=== PATIENT | female | born 1990 | race Hispanic/Latino ===

== ENCOUNTER 2016-11-22 18:40 | Emergency (ER) | payer MEDICAID, OTHER ==
[2016-11-22 18:40] VITALS: BMI 31.7
[2016-11-22 18:59] VITALS: BP 118/61; PULSE 71; RESP 16; TEMP 97.7; O2SAT 98
[2016-11-22] MEDS ORDERED: Sodium Chloride 0.9% 1,000 ML IV STA (19:43)
[2016-11-22 20:32] LABS: ALB/GLOB RATIO 1.3 (1.0-2.1); ALKALINE PHOSPHATASE 75 U/L (38-126); ALT/SGPT 33 U/L (9-52); AST/SGOT 20 U/L (14-36); BILIRUBIN,TOTAL 0.9 mg/dl (0.2-1.3); BLOOD UREA NITROGEN 9 mg/dl (7-17); CALCIUM 9.5 mg/dL (8.4-10.2); CARBON DIOXIDE 24 mmol/L (22-30); CHLORIDE 106 mmol/L (98-107); GFR AFRICAN-AMERICAN > 60; GLUCOSE,RANDOM 86 mg/dL (65-105); LIPASE 76 U/L (23-300); POTASSIUM 4.1 MMOL/L (3.6-5.0); SODIUM 140 mmol/l (132-148); TOTAL PROTEIN 7.8 G/DL (6.3-8.2)
--- NOTE | 2016-11-22 20:52 | ED PDOC ---
HPI: Abdomen Time Seen by Provider: 11/22/16 19:16 Chief Complaint (Nursing): Abdominal Pain Chief Complaint (Provider): Abdominal pain History Per: Patient History/Exam Limitations: no limitations Onset/Duration Of Symptoms: Days (x1 week) Associated Symptoms: Vomiting (bilious, 4 episodes of non bloody), Diarrhea, Loss Of Appetite Additional Complaint(s): Janett Bartholomew is a 26 year old female, with no past medical history , who presents to the emergency department complaining of abdominal pain associated with vomit, poor appetite and diarrhea onset for 1 week. Patient reports 4 episodes of bilious and non bloody vomit. Patient further reports that 2 weeks ago she was scheduled a termination of performed at [facility]. Patient denies having vaginal discharge and completed 1 week of antibiotics as prescribed. PMD: None provided. Past Medical History Reviewed: Historical Data, Nursing Documentation, Vital Signs Vital Signs: Last Vital Signs Temp 97.7 F 11/22/16 18:56 Pulse 71 11/22/16 18:56 Resp 16 11/22/16 18:56 BP 118/61 11/22/16 18:56 Pulse Ox 98 11/22/16 23:32 - Medical History PMH: Anxiety, Hypothyroidism Denies: Chronic Kidney Disease Comment Only: Hyperthyroidism (has appointment for 04/12/14) - Surgical History Surgical History: Tonsillectomy, (x2) - Family History Family History: States: Unknown Family Hx - Social History Current smoker - smoking cessation education provided: Yes (1 pack a day) Alcohol: None Drugs: Denies - Home Medications Home Medications: Ambulatory Orders Medication Instructions Recorded Cefepime 1gm in NS 100ml [Maxipime 1 gm IVPB Q12 #0 bag 11/10/14 1gm] Ciprofloxacin/Dexamethasone 5 drop BID #0 bottle 11/10/14 [Ciprodex Otic] Docusate [Colace] 100 mg PO BID #0 cap 11/10/14 Oxycodone HCl/Acetaminophen 1 tab PO Q4 PRN #20 tab 11/10/14 [Percocet 325 mg-5 mg] Pantoprazole [Protonix] 40 mg PO DAILY #15 ect 11/10/14 predniSONE [predniSONE Tab] 60 mg PO DAILY #7 tab 11/10/14 Ciprofloxacin HCl [Cipro] 500 mg PO BID #19 tab 05/25/15 Ondansetron [Zofran] 4 mg PO Q8H PRN #10 tab 05/25/15 metroNIDAZOLE [Flagyl] 500 mg PO TID #29 tab 05/25/15 Cyclobenzaprine [Cyclobenzaprine 10 mg PO TID PRN #15 tab 12/18/15 HCl] Naproxen [Naprosyn] 500 mg PO BID #20 tab 12/18/15 Dicyclomine [Bentyl] 20 mg PO Q12 PRN #20 tab 11/22/16 Ondansetron ODT [Zofran ODT] 4 mg PO Q6 PRN #16 odt 11/22/16 - Allergies Allergies/Adverse Reactions: Allergies Allergy/AdvReac Type Severity Reaction Status Date / Time No Known Allergies Allergy Verified 05/25/15 15:27 Review of Systems Constitutional: Positive for: Weakness, Other (poor appetite) Gastrointestinal: Positive for: Vomiting (bilious, 4 episodes of non bloody), Abdominal Pain, Diarrhea Genitourinary Female: Negative for: Vaginal Discharge Physical Exam - Reviewed Nursing Documentation Reviewed: Yes Vital Signs Reviewed: Yes - Physical Exam Appears: Positive for: Non-toxic Head Exam: Positive for: ATRAUMATIC, NORMAL INSPECTION, NORMOCEPHALIC Skin: Positive for: Normal Color, Warm, Dry Eye Exam: Positive for: EOMI, Normal appearance, PERRL ENT: Positive for: Normal ENT Inspection Neck: Positive for: Normal, Painless ROM Cardiovascular/Chest: Positive for: Regular Rate, Rhythm. Negative for: Murmur Respiratory: Positive for: Normal Breath Sounds. Negative for: Respiratory Distress Gastrointestinal/Abdominal: Positive for: Tenderness (mild suprapubic ) Back: Positive for: Normal Inspection Extremity: Positive for: Normal ROM. Negative for: Pedal Edema, Deformity Neurologic/Psych: Positive for: Alert, Oriented. Negative for: Motor/Sensory Deficits - Laboratory Results Result Diagrams: 11/22/16 21:00 11/22/16 20:20 - ECG O2 Sat by Pulse Oximetry: 98 (RA) Pulse Ox Interpretation: Normal Medical Decision Making Medical Decision Making: Initial Impression: 26 y/o female w/ vomit and diarrhea in the setting of recent Initial Plan: --Urine dipstick --Urine --CBC w/ differential --Bentyl 20 mg PO --NS IV 1,000ml @ 1,00 mls/hr --Zofran Inj 4mg IV --Pelvic/Transvag US [US] --reevaluation 22:45 Transvaginal ultrasound reviewed. Findings noted as follows: Uterus/cervix: The endometrial stripe is prominent, measuring 10 mm in thickness. This thickening is avascular, which goes against the diagnosis of retained products of conception. No myometrial mass. Right ovary: Unremarkable in echogenicity and size measuring 2.3 x 1.1 x 1.9 cm. No mass. Normal blood flow. Left ovary: Unremarkable in echogenicity and size measuring 1.9 x 1.8 x 1.7 cm. No mass. Normal blood flow. Free fluid: No free fluid. IMPRESSION: Avascular endometrial thickening, consistent with patient's history. No sonographic evidence to suggest the presence of retained products of conception. Otherwise, unremarkable sonographic evaluation of the pelvis, as detailed above. 23:00 Labs were reviewed with no significant findings noted. Upon provider reevaluation patient reports improvement of symptoms, is medically stable, and requires no further treatment in the ED at this time. Patient will be discharged with Rx for Bentyl and Zofran. Counseling was provided and all questions were answered regarding diagnosis. There is agreement to discharge plan. Return if symptoms persist or worsen. Clinical Impression: Gastroenteritis Scribe Attestation: Documented by Ruslan Mccartney and Anel Anderson, acting as scribes for Alejandro Ohara MD. Provider Scribe Attestation: All medical record entries made by the Scribe were at my direction and personally dictated by me. I have reviewed the chart and agree that the record accurately reflects my personal performance of the history, physical exam, medical decision making, and the department course for this patient. I have also personally directed, reviewed, and agree with the discharge instructions and disposition. Disposition - Clinical Impression Clinical Impression: Gastroenteritis - Patient ED Disposition Is Patient to be Admitted: No Counseled Patient/Family Regarding: Studies Performed, Diagnosis, Rx Given - Disposition Disposition: Routine/Home Disposition Time: 23:00 Condition: IMPROVED Prescriptions: Dicyclomine [Bentyl] 20 mg PO Q12 PRN #20 tab PRN Reason: abdominal pain Ondansetron ODT [Zofran ODT] 4 mg PO Q6 PRN #16 odt PRN Reason: Nausea/Vomiting Instructions: Gastroenteritis (ED) Forms: [employer] (Croatian)
[2016-11-22 21:10] LABS: BASO % 0.3 % (0.0-2.0); EOS % 0.3 % (0.0-4.0); HEMATOCRIT 41.7 % (34.0-47.0); LYMPH # 1.7 K/uL (1.0-4.3); LYMPH % 17.1 % (20.0-40.0); MEAN CELL VOLUME 97.2 fl (81.0-99.0); MEAN CORPUSCULAR HEMOGLOBIN 32.2 pg (27.0-31.0); MEAN CORPUSCULAR HGB CONC 33.1 g/dL (33.0-37.0); MEAN PLATELET VOLUME 7.6 fl (7.2-11.7); MONO # 0.5 K/uL (0.0-0.8); MONO % 5.5 % (0.0-10.0); NEUT # 7.5 K/uL (1.8-7.0); NEUT % 76.8 % (50.0-75.0); RED CELL DISTRIBUTION WIDTH 13.6 % (11.5-14.5); WHITE BLOOD COUNT 9.7 K/uL (4.8-10.8)
--- NOTE | 2016-11-22 22:45 | US ---
EXAM: US Pelvis, Transvaginal CLINICAL HISTORY: 26 years old, female; Pain; Pelvic pain; Additional info: Possible rpoc TECHNIQUE: Real-time transvaginal pelvic ultrasound (complete) with image documentation. Transvaginal imaging was used for better evaluation of the endometrium and adnexa. COMPARISON: CT - ABD PELVIS PO IV CONTRAST 05/25/2015 7:44:56 PM FINDINGS: Uterus/cervix: The endometrial stripe is prominent, measuring 10 mm in thickness. This thickening is avascular, which goes against the diagnosis of retained products of conception. No myometrial mass. Right ovary: Unremarkable in echogenicity and size measuring 2.3 x 1.1 x 1.9 cm. No mass. Normal blood flow. Left ovary: Unremarkable in echogenicity and size measuring 1.9 x 1.8 x 1.7 cm. No mass. Normal blood flow. Free fluid: No free fluid. IMPRESSION: Avascular endometrial thickening, consistent with patient's history. No sonographic evidence to suggest the presence of retained products of conception. Otherwise, unremarkable sonographic evaluation of the pelvis, as detailed above.
== END 2016-11-22 23:00 | disposition home or self-care (01) ==
LOC: H.ER 18:40
DX: K52.9 Noninfective gastroenteritis and colitis, unspecified (principal); E03.9 Hypothyroidism, unspecified; E05.90 Thyrotoxicosis, unspecified without thyrotoxic crisis or storm; F41.9 Anxiety disorder, unspecified; R93.8 Abnormal findings on diagnostic imaging of other specified body structures
CPT/HCPCS: 76830; 80053; 83690; 84702; 85025; 96360; 99282; J2405; J7040

== ENCOUNTER 2017-06-25 15:23 | Emergency (ER) | payer OTHER ==
[2017-06-25 15:56] VITALS: BMI 30.5
--- NOTE | 2017-06-25 16:48 | OBHP ---
Datetime: 06/25/2017 16:15 IP Adm Impression: , intrauterine ; No Active Labor; Intact Membranes IP Admit Plan: Observation/Evaluation Admit Comment, IP Provider: IUP at 24w c/o lower abd discomfort for a few weeks. No SROM; n o VB; +FM She did feel some vaginal discharge clear - no ithcing. some freq urination; + dysuria; no urgenc y PNC - chart rev'd : CP / Dr Palencia - last 15+w; no AFP PMH: 'mastoiditis' PSH: C/S x 2; tonisillectomy+adenoids NKA POBHx: C/S x 2 PGYNH: no STD IUPat 24 abd pain; no evidence of ROM- not in labor PLAN: FERN Neg check UA Extremities - PN: Normal Abdomen - PN: Normal Back - PN: Normal Lungs - PN: Normal Heart - PN: Normal HEENT - PN: Normal General - PN: Normal FHR - Baseline A Provider: 130 Membranes, Provider: Intact Contraction Comments Provider: NONE Comments, ACOG Physical Exam: ROS: Geneeral: no fatigue; no weakness HEENT: no DE LA O; no visual disturbance Resp: No SOB; no cough CV: no CP; no palpitations GI: no N/V/D : No F/U/D MS: No joint pain Pool Provider: Negative Ferning Provider: Negative IP Hx Assessment: The History has been Reviewed and is Current EGA AdmitDate IP: 24.0 IP Chief Complaint: Other NICHD Variability Prov Fetus A: Moderate 6-25bpm NICHD Accel Fetus A IP Provider: 10X10 FHR Category Provider Fetus A: Category I NICHD Decel Fetus A IP Provider: None Dilatation, Provider: 0 Genitourinary Exam: Normal
[2017-06-25 17:00] LABS: SQUAMOUS EPITHIAL 1 /hpf (0-5); URINE AMORPHOUS SEDIMENT RARE /ul (<OCC); URINE BILIRUBIN NEGATIVE (NEGATIVE); URINE BLOOD NEGATIVE (NEGATIVE); URINE CLARITY CLOUDY (Clear); URINE COLOR YELLOW (YELLOW); URINE GLUCOSE (UA) NEG (Normal); URINE LEUKOCYTE ESTERASE NEG Leu/uL (Negative); URINE PROTEIN NEGATIVE (NEGATIVE)
--- NOTE | 2017-06-25 17:49 | OBDCSUM ---
Datetime: 06/25/2017 17:23 Discharged to, Provider: Home Follow up at, Provider: Dr Palencia Disch Instr Activity: Normal activity Disch Instr Diet: Regular Discharge Time: 06/25/2017 17:24 Follow up in weeks, Provider: make appt with the office Discharge Comment, Provider: Stu neg : follow up Dr Frey in 1-2w (missed 4w appt) Discharge Diagnosis Prov Other: abd pain in preg
[2017-06-25 21:35] VITALS: BP 100/58; PULSE 83; RESP 17; TEMP 97.3; O2SAT 100
--- NOTE | 2017-06-26 10:24 | OBHP ---
Datetime: 06/25/2017 16:15 Comments, ACOG Physical Exam: ROS: Geneeral: no fatigue; no weakness HEENT: no DE LA O; no visual disturbance Resp: No SOB; no cough CV: no CP; no palpitations GI: no N/V/D : some F/no U/some D MS: No joint pain EGA AdmitDate IP: 27.4
== END 2017-06-25 17:35 | disposition home or self-care (01) ==
LOC: H.EROB2 15:23
DX: O26.92 Pregnancy related conditions, unspecified, second trimester (principal); R10.2 Pelvic and perineal pain; Z3A.34 34 weeks gestation of pregnancy

== ENCOUNTER 2017-07-20 22:35 | Emergency (ER) | payer OTHER ==
[2017-07-20] MEDS: Lactated Ringer's 1,000 ML IV SCH (23:30)
--- NOTE | 2017-07-20 23:51 | OBHP ---
Datetime: 07/20/2017 23:47 IP Adm Impression: , intrauterine ; No Active Labor; Intact Membranes IP Admit Plan: Observation/Evaluation Admit Comment, IP Provider: 26-year-old at 31 weeks gestational age presents to OB ED complain ing of nausea and vomiting for 24 hours. Patient denies any contractions, vaginal bleeding, leakage o f fluids. Patient reports good movement. Patient reports that her child recently had gastrointe stinal infection causing nausea vomiting and diarrhea. Patient denies any fevers or chills. Past medical history denies Past surgical history denies Medications vitamins No known drug allergies Obstetrical history 2 Social history denies tobacco, drugs, alcohol Physical exam: Refer to physical exam findings Assessment: at 31 weeks gestational age with likely gastroenteritis. Both maternal well-being and well-being reassuring at this time. Plan: IV fluid hydration Check CBC, CMP, amylase, lipase, liver function tests, urinalysis Continue observation Discussed plan with patient and all patient questions answered. Extremities - PN: Normal Abdomen - PN: Normal Back - PN: Normal Neurologic - PN: Normal HEENT - PN: Normal General - PN: Normal FHR - Baseline A Provider: 130s Contraction Comments Provider: none Comments, ACOG Physical Exam: Abdomen soft, nontender, nondistended, gravid No rebound, no guarding Cervix long, closed, posterior No blood, fluid, discharge EGA AdmitDate IP: 31.1 Vital Signs Provider: Reviewed; Within Normal Limits IP Chief Complaint: Illness NICHD Variability Prov Fetus A: Moderate 6-25bpm NICHD Decel Fetus A IP Provider: None Dilatation, Provider: 0 Effacement, Provider: 0 Station, Provider: -4 Genitourinary Exam: Normal
[2017-07-21 00:01] LABS: BASO % 0.4 % (0.0-2.0); EOS # 0.1 K/uL (0.0-0.7); EOS % 0.9 % (0.0-4.0); HEMOGLOBIN 12.3 g/dL (12.0-16.0); LYMPH # 1.8 K/uL (1.0-4.3); LYMPH % 16.5 % (20.0-40.0); MEAN CELL VOLUME 98.5 fl (81.0-99.0); MEAN CORPUSCULAR HEMOGLOBIN 34.2 pg (27.0-31.0); MEAN CORPUSCULAR HGB CONC 34.7 g/dL (33.0-37.0); NEUT # 7.8 K/uL (1.8-7.0); NEUT % 73.2 % (50.0-75.0); RBC 3.6 Mil/uL (3.80-5.20); WHITE BLOOD COUNT 10.6 K/uL (4.8-10.8)
[2017-07-21 00:10] LABS: ALBUMIN 3.8 g/dL (3.5-5.0); ALT/SGPT 24 U/L (9-52); AMYLASE 76 U/L (30-110); AST/SGOT 21 U/L (14-36); BLOOD UREA NITROGEN 8 mg/dl (7-17); GFR AFRICAN-AMERICAN > 60; GFR NON-AFRICAN AMERICAN > 60; LIPASE 133 U/L (23-300)
[2017-07-21 00:18] LABS: SQUAMOUS EPITHIAL 3 /hpf (0-5); URINE BACTERIA RARE (<OCC); URINE BILIRUBIN NEGATIVE (NEGATIVE); URINE BLOOD NEGATIVE (NEGATIVE); URINE CLARITY SLIGHTY-CLOUDY (Clear); URINE COLOR YELLOW (YELLOW); URINE GLUCOSE (UA) NEG (Normal); URINE HYALINE CAST 0-2 /hpf (0-2); URINE LEUKOCYTE ESTERASE NEG Leu/uL (Negative); URINE PROTEIN NEGATIVE (NEGATIVE)
[2017-07-21] MEDS: Lactated Ringer's 1,000 ML IV SCH (00:30)
[2017-07-21 08:13] VITALS: BP 106/54; PULSE 73; RESP 18; TEMP 98.3
== END 2017-07-21 02:00 | disposition home or self-care (01) ==
LOC: H.EROB2 22:35 → H.L&D 22:42 → H.EROB2 07-21 02:00
DX: O21.0 Mild hyperemesis gravidarum (principal); Z3A.31 31 weeks gestation of pregnancy
CPT/HCPCS: 80053; 81003; 82150; 83690; 85025; 96361; 96374; 99283; J2405; J7120

== ENCOUNTER 2017-09-05 15:16 | Emergency (ER) | payer OTHER ==
[2017-09-05] MEDS ORDERED: Lactated Ringer's 500 ML IV SCH ×2 (17:00)
[2017-09-05] MEDS ORDERED: Lactated Ringer's 1,000 ML IV SCH ×2 (17:15)
[2017-09-05 17:34] LABS: SQUAMOUS EPITHIAL 14 /hpf (0-5); URINE BACTERIA RARE (<OCC); URINE BILIRUBIN NEGATIVE (NEGATIVE); URINE BLOOD NEGATIVE (NEGATIVE); URINE CLARITY CLOUDY (Clear); URINE COLOR AMBER (YELLOW); URINE GLUCOSE (UA) NEG (Normal); URINE LEUKOCYTE ESTERASE NEG Leu/uL (Negative); URINE PROTEIN 30 mg/dL (NEGATIVE)
--- NOTE | 2017-09-05 20:14 | OBHP ---
Datetime: 09/05/2017 16:16 IP Adm Impression: , intrauterine ; No Active Labor IP Chief Complaint Other: lower abdominal pain, pressure Admit Comment, IP Provider: Patient is a 34.2 weeks gest age YANIRA 10/15/17 based on patient hi story. Patient complains of constant lower abdominal pain and pressure since last night. Denies vagin al bleeding, loss of fluids, baby is moving ok. Patient complains of dizziness, headaches, nausea, an d diarrhea. Last visit was with Dr. Jimenez 3 weeks ago and her next visit is 09/10/17. PNC: Patient states she has received labs ObHx: Denies any complications with current pregancy 2 previous C sections- low transverse cut 2010. 1 premie at 36 weeks no other complications. [place] hx: Denies STI history Pmhx: Bipolar, Anxiety, Depression Meds: Off medications for psych issues (was on xanax) Allergies: NKDA Fhx: DM- mom and Dad, Cancer- lymphoma Socialhx: Denies tobacco, drugs, or alcohol Surghx:None Hosp:None Impression 34.2 week IUP here r/o early labor A/P -Monitor heart tracings - Carly Enrique MD PGY-1 Discussed with Attending Addendum by Dr. Valente: I have evaluated the patient independently and I agree with the above Extremities - PN: Normal Abdomen - PN: Normal Back - PN: Normal Breast - PN: Not Done Lungs - PN: Normal Heart - PN: Normal Thyroid - PN: Not Done Neurologic - PN: Normal HEENT - PN: Normal General - PN: Normal Comments, ACOG Physical Exam: Right sided JVD noted Gestation - Est Wks by US: 10/15/17 EGA AdmitDate IP: 34.2 Vital Signs Provider: Reviewed IP Chief Complaint: Uterine contractions; Maternal discomfort Genitourinary Exam: Normal
--- NOTE | 2017-09-05 20:16 | OBDCSUM ---
Datetime: 09/05/2017 18:05 Discharged to, Provider: Home Follow up at, Provider: Disch Instr Activity: Normal activity Disch Instr Diet: Regular Discharge Instructions, Provider: Routine instructions given Discharge Time: 09/05/2017 18:15 Follow up in weeks, Provider: as scheduled on 09/10/17 Disch Referrals: None Contraception discussed, Prov: Yes Discharge Diagnosis Prov Other: false labor
[2017-09-05 23:20] VITALS: BP 109/82; PULSE 91; RESP 18; TEMP 98.1; O2SAT 100
== END 2017-09-05 18:15 | disposition home or self-care (01) ==
LOC: H.EROB2 15:16
DX: O26.93 Pregnancy related conditions, unspecified, third trimester (principal); R10.2 Pelvic and perineal pain; O47.03 False labor before 37 completed weeks of gestation, third trimester; Z3A.34 34 weeks gestation of pregnancy; Z87.59 Personal history of other complications of pregnancy, childbirth and the puerperium; Z86.59 Personal history of other mental and behavioral disorders
CPT/HCPCS: 81003; 99283; J7120

== ENCOUNTER 2017-09-20 21:28 | Emergency (ER) | payer OTHER ==
[2017-09-20 22:08] VITALS: BMI 31.2
--- NOTE | 2017-09-20 22:18 | OBHP ---
Datetime: 09/20/2017 22:07 IP Adm Impression: , intrauterine ; No Active Labor; Intact Membranes IP Admit Plan: Observation/Evaluation Admit Comment, IP Provider: 27yo IUP at 36w (EDC Oct 15) c/o abd presure bilateral and back discomfort since this morning. She says constant non radiating; no meds taken, No SROM; no VB; +FM care: CP / Dr Palencia - chart rev'd POBH: C/S x 2 PGYNH: No STD PMH: vertigo; Bipolar; low thyroid; low B12 - documented 'mastoiditis" PSH: C/S x 2; Documented ; Adenoid surgrery MEDS: PNV only A; IUP at 36w C/Sx 2 not in labor Abd /markel pain - no sigm of labor / prob musculaoskeletal PLAN: Tylenol PO fluids montior FH her next appt September 30...adised to follow up each week for OB appt FHR - Baseline A Provider: 135 Membranes, Provider: Intact Contraction Comments Provider: none Comments, ACOG Physical Exam: raw stock drier tender with palpation L>R musular bogginess Abd non tender; gravid uterus ROS: Geneeral: no fatigue; no weakness HEENT: no DE LA O; no visual disturbance Resp: No SOB; no cough CV: no CP; no palpitations GI: no N/V/D : No F/U/D MS: No joint pain ; + back pain Pool Provider: Negative IP Hx Assessment: The History has been Reviewed and is Current EGA AdmitDate IP: 36.3 Vital Signs Provider: Reviewed; Within Normal Limits IP Chief Complaint: Other NICHD Variability Prov Fetus A: Moderate 6-25bpm NICHD Accel Fetus A IP Provider: 10X10 FHR Category Provider Fetus A: Category I NICHD Decel Fetus A IP Provider: None Dilatation, Provider: 0 Effacement, Provider: afua Herrmann, Provider:
[2017-09-21 03:08] VITALS: BP 115/62; PULSE 87; RESP 99; TEMP 98.4; O2SAT 99
--- NOTE | 2017-09-21 06:55 | OBDCSUM ---
Datetime: 09/20/2017 22:20 Discharged to, Provider: Home Follow up at, Provider: Dr. Cordero Disch Instr Activity: Normal activity Disch Instr Diet: Regular Discharge Diagnosis, Provider: False Labor - Undelivered Discharge Time: 09/20/2017 22:20 Follow up in weeks, Provider: Saturday09/25/2017 or 09/26/2017 Disch Referrals: None
== END 2017-09-20 22:30 | disposition home or self-care (01) ==
LOC: H.EROB2 21:28
DX: O26.93 Pregnancy related conditions, unspecified, third trimester (principal); R10.2 Pelvic and perineal pain; M54.9 Dorsalgia, unspecified; Z3A.36 36 weeks gestation of pregnancy; O47.03 False labor before 37 completed weeks of gestation, third trimester

== ENCOUNTER 2017-10-03 00:07 | Inpatient (IN) | payer OTHER ==
[2017-10-03] MEDS: LACTATED RINGER S IV SCH ×2 (01:25→02:30)
[2017-10-03] MEDS ORDERED: ceFAZolin IV 2 gm in Dextrose 2 GM/50 ML BAG IVPB ONE (10:19)
[2017-10-03] MEDS ORDERED: Lactated Ringer's 1,000 ML IV ONE ×2 (10:19→10:49)
[2017-10-03] MEDS ORDERED: Bicitra 30 ML UD PO ONE (10:19)
[2017-10-03] MEDS ORDERED: Oxycodone/Acetaminophen 5/325 mg Tab PO PRN (10:21)
[2017-10-03 11:08] LABS: BASO % 0.4 % (0.0-2.0); EOS # 0.1 K/uL (0.0-0.7); EOS % 0.8 % (0.0-4.0); LYMPH % 20.9 % (20.0-40.0); MEAN CELL VOLUME 99.2 fl (81.0-99.0); MEAN CORPUSCULAR HEMOGLOBIN 34.7 pg (27.0-31.0); MEAN CORPUSCULAR HGB CONC 34.9 g/dL (33.0-37.0); MEAN PLATELET VOLUME 8.5 fl (7.2-11.7); MONO % 10.5 % (0.0-10.0); NEUT # 6.5 K/uL (1.8-7.0); NEUT % 67.4 % (50.0-75.0); NRBC % 0.1 % (0.0-0.0); RBC 3.17 Mil/uL (3.80-5.20); RED CELL DISTRIBUTION WIDTH 13.7 % (11.5-14.5); WHITE BLOOD COUNT 9.6 K/uL (4.8-10.8)
[2017-10-03] MEDS ORDERED: Morphine 1 mg/ml preservative-free Inj(Duramorph) ONE (11:43)
[2017-10-03] MEDS ORDERED: Midazolam 2 MG/2 ML VIAL ONE (11:43)
[2017-10-03] MEDS ORDERED: ePHEDrine 50 mg/ml Inj ONE (11:44)
[2017-10-03] MEDS ORDERED: Ketamine 50 mg/ml Inj (10 ml) ONE (12:20)
[2017-10-03] MEDS ORDERED: DiphenhydrAMINE 50 mg/ml Inj IVP PRN ×2 (14:30→14:50)
[2017-10-03] MEDS ORDERED: Lactated Ringer's 1,000 ML IV SCH (16:15)
[2017-10-03] MEDS: Oxycodone/Acetaminophen 5/325 mg Tab PO PRN (20:31)
[2017-10-04 07:00] LABS: HEMOGLOBIN 9.8 g/dL (12.0-16.0); MEAN CORPUSCULAR HEMOGLOBIN 33.6 pg (27.0-31.0); MEAN CORPUSCULAR HGB CONC 33.9 g/dL (33.0-37.0); RBC 2.93 Mil/uL (3.80-5.20); RED CELL DISTRIBUTION WIDTH 13.3 % (11.5-14.5); WHITE BLOOD COUNT 11.1 K/uL (4.8-10.8)
[2017-10-04] MEDS: Oxycodone/Acetaminophen 5/325 mg Tab PO PRN ×3 (08:35→23:48)
[2017-10-04] MEDS: Multivitamin With Minerals Tab PO SCH (08:36)
--- NOTE | 2017-10-04 08:56 | OBDS ---
DELIVERY PERSONNEL Delivery Doctor: Fred Stephen MD Spray Crew: Leslie Mcnally RN Anesthesiologist: Genoveva Wilks MD Resident: Fernando ELDRIDGE MATERNAL INFORMATION Delivery Anesthesia: Spinal Medications in Delivery: OxytocIn Placenta Cultured: No Maternal Complications: None Provider Comments: Repeat LFT . Patient delivered viable infant with Apgars of 9 and 9 at one and 5 minutes respectively, normal u terus, normal tubes and ovaries bilaterally. Estimated blood loss 800 mL Fluids 900 mL lactated Ringer's Urine output 500 mL of clear urine No complications LABOR SUMMARY EDC: 10/15/2017 00:00 No. Babies in Womb: 1 Attempted: No Labor Anesthesia: None LABOR INFORMATION Reason for Induction: Not Applicable Oxytocin: N/A Group B Beta Strep: Done, Result Unknown Steroids Given: None Reason Steroids Not Administered: Not Applicable MEMBRANES Membranes Rupture Method: Artificial Rupture of Membranes: 10/03/2017 12:26 Length of Rupture (hrs): 0.00 Amniotic Fluid Color: Clear Amniotic Fluid Amount: Moderate STAGES OF LABOR Stage 3 hrs: 0 Stage 3 min: 1 CSECTION DELIVERY Primary Indication: Repeat Elective Secondary Indication: Repeat Elective CSection Urgency: Elective CSection Incidence: Repeat Labor: Labor Elective: Nonelective CSection Incision: Lower Uterine Transverse BABY A INFORMATION Infant Delivery Date/Time: 10/03/2017 12:26 Method of Delivery: Born in Route : No : N/A Forceps: N/A Vacuum Extraction: N/A Shoulder Dystocia : No SHOULDER DYSTOCIA BABY A Delivery Date/Time: 10/03/2017 12:26 PRESENTATION/POSITION BABY A Presentation: Cephalic Cephalic Presentation: Vertex PLACENTA INFORMATION BABY A Placenta Delivery Time : 10/03/2017 12:27 Placenta Method of Delivery: Manual Removal Placenta Status: Delivered SCORES BABY A Heart Rate 1 min: >100 bpm Resp Effort 1 min: Good Cry Reflex Irritability 1 min: Cough or Sneeze or Pulls Away Muscle Tone 1 min: Active Motion Color 1 min: Body [place], Extremities Blue Resuscitation Effort 1 min: Tactile Stimulation SCORE 1 MIN: 9 Heart Rate 5 min: >100 bpm Resp Effort 5 min: Good Cry Reflex Irritability 5 min: Cough or Sneeze or Pulls Away Muscle Tone 5 min: Active Motion Color 5 min: Body [place], Extremities Blue Resuscitation Effort 5 min: Tactile Stimulation SCORE 5 MIN: 9 INFANT INFORMATION BABY A Gestational Age at Delivery: 38.2 Gestational Status: Term Infant Outcome : Liveborn Infant Condition : Stable Infant Sex: Male IDENTIFICATION/MEDS BABY A ID Band Number: [id number] ID Band Location: Left Leg; Left Arm WEIGHT/LENGTH BABY A Infant Birthweight (gms): 2650 Infant Weight (lb): 5 Infant Weight (oz): 13 CORD INFORMATION BABY A No. Cord Vessels: 3 Nuchal Cord : N/A Cord Blood Taken: Yes Suction: Mouth; Nose ASSESSMENT BABY A Complications: None Physical Findings at Delivery: Within Normal Limits Respirations: Appears Normal Cement Mason Maintenance/ALS Called : No Transferred To: Remains with Mother
[2017-10-04] MEDS ORDERED: Multivitamin With Minerals Tab PO SCH (09:00)
--- NOTE | 2017-10-04 09:08 | OBDS ---
DELIVERY PERSONNEL Delivery Doctor: Fred Stephen MD Salesperson Yard Goods: Leslie Mcnally RN Anesthesiologist: Genoveva Wilks MD Resident: Fernando ELDRIDGE MATERNAL INFORMATION Delivery Anesthesia: Spinal Medications in Delivery: OxytocIn Placenta Cultured: No Maternal Complications: None Provider Comments: Repeat LFT . Patient delivered viable with Apgars of 9 and 9 at one and 5 minutes respectively, normal u terus, normal tubes and ovaries bilaterally. Estimated blood loss 800 mL Fluids 900 mL lactated Ringer's Urine output 500 mL of clear urine No complications LABOR SUMMARY EDC: 10/15/2017 00:00 EDC: 10/15/2017 00:00 EDC: 10/15/2017 00:00 EDC: 09/20/2017 00:00 EDC: 10/15/2017 00:00 No. Babies in Womb: 1 Attempted: No Labor Anesthesia: None LABOR INFORMATION Reason for Induction: Not Applicable Oxytocin: N/A Group B Beta Strep: Done, Result Unknown Steroids Given: None Reason Steroids Not Administered: Not Applicable MEMBRANES Membranes Rupture Method: Artificial Rupture of Membranes: 10/03/2017 12:26 Length of Rupture (hrs): 0.00 Amniotic Fluid Color: Clear Amniotic Fluid Amount: Moderate STAGES OF LABOR Stage 3 hrs: 0 Stage 3 min: 1 CSECTION DELIVERY Primary Indication: Repeat Elective Secondary Indication: Repeat Elective CSection Urgency: Elective CSection Incidence: Repeat Labor: Labor Elective: Nonelective CSection Incision: Lower Uterine Transverse BABY A INFORMATION Infant Delivery Date/Time: 10/03/2017 12:26 Method of Delivery: Born in Route : No : N/A Forceps: N/A Vacuum Extraction: N/A Shoulder Dystocia : No SHOULDER DYSTOCIA BABY A Delivery Date/Time: 10/03/2017 12:26 PRESENTATION/POSITION BABY A Presentation: Cephalic Cephalic Presentation: Vertex PLACENTA INFORMATION BABY A Placenta Delivery Time : 10/03/2017 12:27 Placenta Method of Delivery: Manual Removal Placenta Status: Delivered SCORES BABY A Heart Rate 1 min: >100 bpm Resp Effort 1 min: Good Cry Reflex Irritability 1 min: Cough or Sneeze or Pulls Away Muscle Tone 1 min: Active Motion Color 1 min: Body [place], Extremities Blue Resuscitation Effort 1 min: Tactile Stimulation SCORE 1 MIN: 9 Heart Rate 5 min: >100 bpm Resp Effort 5 min: Good Cry Reflex Irritability 5 min: Cough or Sneeze or Pulls Away Muscle Tone 5 min: Active Motion Color 5 min: Body [place], Extremities Blue Resuscitation Effort 5 min: Tactile Stimulation SCORE 5 MIN: 9 INFANT INFORMATION BABY A Gestational Age at Delivery: 38.2 Gestational Status: Term Infant Outcome : Liveborn Condition : Stable Sex: Male IDENTIFICATION/MEDS BABY A ID Band Number: [id number] ID Band Location: Left Leg; Left Arm WEIGHT/LENGTH BABY A Infant Birthweight (gms): 2650 Weight (lb): 5 Weight (oz): 13 CORD INFORMATION BABY A No. Cord Vessels: 3 Nuchal Cord : N/A Cord Blood Taken: Yes Suction: Mouth; Nose ASSESSMENT BABY A Complications: None Physical Findings at Delivery: Within Normal Limits Respirations: Appears Normal Accounts Receivable Coordinator/ALS Called : No Transferred To: Remains with Mother
--- NOTE | 2017-10-04 12:38 | OBPPN ---
Datetime: 10/04/2017 12:35 PP Pain Prov: Within normal limits PP Nausea Prov: Denies PP Flatus Prov: Yes PP BM Prov: No PP Breasts Prov: Normal PP Heart Prov: Normal PP Lungs Prov: Normal PP Abdomen/Uterus Prov: Normal PP Lochia Prov: Normal PP Vulva/Perineum Prov: Normal PP CVA Tenderness Prov: Normal PP Extremities Prov: Normal PP C/S Incision Prov: Normal PP Progress Prov: Normal PP Impression Prov: Normal progression PP Plan Prov: Continue present management PP Progress Note Prov: She feels fine today. Better than her first section. Tolerating PO intake H/H 11/30 A: S/P day 1 PLAN: cont post op care Vital Signs Provider PP: Reviewed; Within Normal Limits
[2017-10-04] MEDS ORDERED: Oxycodone/Acetaminophen 5/325 mg Tab PO ONE (17:21)
--- NOTE | 2017-10-04 17:25 | OBPPN ---
Datetime: 10/04/2017 17:22 PP Progress Note Prov: Notified that she still has incisoinal pain. Took Percoest 15:30pm. not rel ieved. Abd soft not distended Will give percoset one stat dose.
[2017-10-04 19:30] LABS: RUBELLA AB (IGG) <0.90 index
--- NOTE | 2017-10-04 20:37 | OP ---
Copied To: Hung Stephen MD Attending MD: Hung Stephen MD PROCEDURE DATE: 10/03/2017 PREOPERATIVE DIAGNOSIS: Elective repeat section, done at 38 weeks gestational age due to early labor. POSTOPERATIVE DIAGNOSIS: Elective repeat section, done at 38 weeks gestational age due to early labor. OPERATION PERFORMED: Repeat low flap transverse section via Pfannenstiel incision, bilateral tubal ligation in Jose Luis fashion. SURGEON: Hung Stephen MD. ETL LEAD: Dr. Nevarez. ANESTHESIOLOGIST: Dr. Wilks. ANESTHESIA: Spinal. OPERATIVE FINDINGS: Viable infant with Apgars of 9 and 9 in one and five minutes respectively, normal uterus, normal tubes, and ovaries bilaterally. ESTIMATED BLOOD LOSS: 800 mL. FLUIDS: 900 mL Lactated Ringer's. URINE OUTPUT: 500 mL of clear urine at the end of procedure. COMPLICATIONS: No complications. DESCRIPTION OF PROCEDURE: The patient was taken to the operating room where spinal anesthesia was found to be adequate. The patient was prepped and draped in normal sterile fashion in the dorsal supine position with a leftward tilt. A Pfannenstiel skin incision was made with the scalpel. This was carried down through to the underlying layer of fascia with the scalpel. Midline defect was made in the fascial layer with the scalpel. The fascial incision was then extended bilaterally with curved Chou scissors. The fascial layer was from the underlying rectus muscles both bluntly and sharply with curved Chou scissors. The rectus muscles were at the midline. The peritoneum was then identified, tented up with Sharmin clamps x2, and entered sharply with Metzenbaum scissors. This peritoneal incision was then extended superiorly and inferiorly with good visualization of the urinary bladder. Bladder blade was inserted into the abdomen. The vesicouterine peritoneum was then identified, tented upward with Sharmin clamps x2, and entered sharply with Metzenbaum scissors. This peritoneal incision was then extended bilaterally with Metzenbaum scissors. The bladder flap was created digitally. The Broadway retractor was placed over the urinary bladder. The uterus was incised with a scalpel. The uterine incision was extended bilaterally bluntly. The head was delivered atraumatically. Nose and mouth were suctioned with bulb suction. The remainder of the was delivered without complication. The cord was clamped and cut. The was handed off to awaiting pediatricians. Cord blood was collected. The placenta was removed manually. The uterus was cleared of all clots and debris. The uterine incision was repaired with 0 Vicryl in a running, locked fashion. The second layer with the same suture was used to imbricate the first and to obtain excellent hemostasis. Attention was then turned to the fallopian tubes. The fallopian tubes were grasped with Krissy clamps bilaterally, suture ligated in a [place] fashion bilaterally, transacted bilaterally, electrocauterized bilaterally. Reinspection of the surgical pedicles proved hemostasis. All instruments were removed from the patient. All surgical pedicles were found to be hemostatic. The peritoneal layer was closed with a running stitch of 2-0 chromic. The rectus muscles were reapproximated with running stitch of 2-0 chromic. The fascial layer was closed with a running stitch of 0 Vicryl. Subcutaneous tissue was closed with a running stitch of 3-0 plain. The skin was closed with subcutaneous stitch of 3-0 Vicryl. The patient tolerated the procedure well. All sponge, lap count, and needle counts were correct x2. The patient was given 2 g of Ancef just prior to the beginning of the procedure. There were no complications. The patient was taken to the recovery room in awake and stable condition. Hung Stephen MD
[2017-10-04] MEDS ORDERED: Lansinoh for Breast Feeding Mothers TP ONE (23:46)
[2017-10-05] MEDS: Oxycodone/Acetaminophen 5/325 mg Tab PO PRN ×4 (05:13→20:47)
[2017-10-05] MEDS: Multivitamin With Minerals Tab PO SCH (08:07)
--- NOTE | 2017-10-05 11:39 | OBPPN ---
Datetime: 10/05/2017 11:36 PP Pain Prov: Within normal limits PP Nausea Prov: Denies PP Flatus Prov: Yes PP Breasts Prov: Normal PP Heart Prov: Normal PP Lungs Prov: Normal PP Abdomen/Uterus Prov: Normal PP Lochia Prov: Normal PP Vulva/Perineum Prov: Normal PP CVA Tenderness Prov: Normal PP Extremities Prov: Normal PP Comments Phys Exam Prov: Abd: Soft, NT, BS - present UT - Firm. fundus below umbilicus Incision: Clean and dry PP Impression Prov: Normal progression PP Plan Prov: Continue present management PP Progress Note Prov: S/P Repeat C/S, POD #2 Clinically Stable Plan: Continue care Encourage ambulation. Vital Signs Provider PP: Reviewed
--- NOTE | 2017-10-05 11:57 | CP.PCM.CON ---
History of Present Illness - History of Present Illness History of Present Illness: pt is 27ys old female with previous psychiatric diagnosis of bipolar disorder, and anxiety , no history of prvious psychiatric hospitalizations, pt has stopped taking her psychotropic medications since she became about 9 months ago, , she could not recollect her medications excpt xanax which she took for anxiety as needed pt reported her mental status has been stable throughout the at the current time she is breast feeding and prefers not to take any medications, she denied any changes in sleep or appetite, no reported manic symptoms or depression symptoms, denied any psychotic symptoms, denied suicidal or homicidal ideation reported connecting well with the new born and well supported by the father of the new born and her family Past Patient History - Past Social History Smoking Status: Never Smoked - CARDIAC Hx Cardiac Disorders: No - PULMONARY Hx Respiratory Disorders: No - NEUROLOGICAL Hx Neurological Disorder: No - HEENT Hx HEENT Problems: No - RENAL Hx Chronic Kidney Disease: No - ENDOCRINE/METABOLIC Hx Hyperthyroidism: (has appointment for 04/12/14) Hx Hypothyroidism: Yes - HEMATOLOGICAL/ONCOLOGICAL Hx Blood Disorders: No - INTEGUMENTARY Hx Dermatological Problems: No - MUSCULOSKELETAL/RHEUMATOLOGICAL Hx Musculoskeletal Disorders: No Hx Falls: No - GENITOURINARY/GYNECOLOGICAL Hx Genitourinary Disorders: No - PSYCHIATRIC Hx Anxiety: Yes - SURGICAL HISTORY Hx Tonsillectomy: Yes - ANESTHESIA Hx Anesthesia: Yes Hx Anesthesia Reactions: No Meds Allergies/Adverse Reactions: Allergies Allergy/AdvReac Type Severity Reaction Status Date / Time No Known Allergies Allergy Verified 09/20/17 22:04 - Medications Medications: Current Medications Diphenhydramine HCl (Benadryl) 50 mg IVP Q6 PRN PRN Reason: Itching / Pruritus Docusate Sodium (Colace) 100 mg PO BID [facility] Last Admin: 10/05/17 08:07 Dose: 100 mg Lactated Ringer's (Lactated Ringer's) 1,000 mls @ 125 mls/hr IV .Q8H [facility] Last Admin: 10/03/17 16:14 Dose: 125 mls/hr Ibuprofen (Motrin Tab) 600 mg PO Q6H PRN PRN Reason: Pain, Mild (1-3) Last Admin: 10/04/17 19:51 Dose: 600 mg Ketorolac Tromethamine (Toradol) 30 mg IVP Q6 PRN PRN Reason: Pain, moderate (4-7) Last Admin: 10/04/17 05:15 Dose: 30 mg Metoclopramide HCl (Reglan) 10 mg IVP Q6H PRN PRN Reason: Nausea/Vomiting Multivitamins/Minerals (Therapeutic-M Tab) 1 tab PO DAILY [facility] Last Admin: 10/05/17 08:07 Dose: 1 tab Ondansetron HCl (Zofran Inj) 4 mg IVP Q6 PRN PRN Reason: Nausea/Vomiting Oxycodone/Acetaminophen (Percocet 5/325 Mg Tab) 1 tab PO Q4 PRN PRN Reason: Pain, moderate (4-7) Stop: 10/06/17 10:22 Last Admin: 10/05/17 09:39 Dose: 1 tab Physical Exam - Psychiatric Exam Additional comments: pt seen in bed , calm cooperative good eye contact speech normal thought form coherent , denied any current suicidal or homicidal ideation denied perceptual disturbances, non elicited , AAOX3 Results - Vital Signs Recent Vital Signs: Last Vital Signs Temp Pulse 86 10/04/17 09:10 Resp BP Pulse Ox - Labs Result Diagrams: 10/04/17 06:00 Labs: Laboratory Results - last 24 hr 10/03/17 13:45 Rubella IgG Antibody <0.90 L Assessment & Plan - Assessment and Plan (Free Text) Assessment: BIPOLAR DISORDER IN REMISSION Plan: pt at current mental status denied suicidal or homicidal ideation denied perceptual disturbances, at current mental status not danger to self or others psychiatricaly cleared for discharge upon medical clearance
[2017-10-06] MEDS: Oxycodone/Acetaminophen 5/325 mg Tab PO PRN ×2 (02:10→07:49)
[2017-10-06] MEDS: Multivitamin With Minerals Tab PO SCH ×2 (07:49→09:30)
[2017-10-06] MEDS ORDERED: Measles, Mumps, and Rubella 0.5 ML VIAL SC ONE (10:32)
--- NOTE | 2017-10-06 11:12 | OBPPN ---
Datetime: 10/06/2017 11:08 PP Pain Prov: Within normal limits PP Nausea Prov: Denies PP Flatus Prov: Yes PP Breasts Prov: Normal PP Heart Prov: Normal PP Lungs Prov: Normal PP Abdomen/Uterus Prov: Normal PP Lochia Prov: Normal PP Vulva/Perineum Prov: Normal PP CVA Tenderness Prov: Normal PP Extremities Prov: Normal PP Comments Phys Exam Prov: Abd: Soft,Nt ,BS Presnt UT- Firm Incision: Clean and dry PP Impression Prov: Normal progression PP Plan Prov: Discharge PP Progress Note Prov: S/P Delivery, POD #3 Clinically Stable. Plan D/C Home. Vital Signs Provider PP: Reviewed
--- NOTE | 2017-10-06 11:14 | OBDCSUM ---
Datetime: 10/06/2017 11:12 Discharged to, Provider: Home Follow up at, Provider: Dr Chandler Discharge Diagnosis, Provider: Term Delivered Discharge Time: 10/06/2017 11:12 Follow up in weeks, Provider: 2 weeks Discharge Comment, Provider: S/P Delivery, Clinically Stable Discharge Diagnosis Prov Other: S/P Delivery, Clinically Stable Datetime: 09/20/2017 22:20 Follow up at, Provider: [facility] Discharge Time: 10/06/2017 22:20 Follow up in weeks, Provider: 1 week
[2017-10-06 17:37] VITALS: BP 129/77; PULSE 78; RESP 18; TEMP 97.9; O2SAT 98
== END 2017-10-06 12:00 | disposition home or self-care (01) | DRG 371 ==
LOC: H.EROB2 00:07 → H.EROB 11:10 → H.OB/GYN 15:55
PROVIDERS: ADMIT Obstetrics & Gynecology; ATTEND Obstetrics & Gynecology
PROC: 10D00Z1 Extraction of Products of Conception, Low, Open Approach (ICD-10-PCS; principal; 2017-10-03)
PROC: 0UB70ZZ Excision of Bilateral Fallopian Tubes, Open Approach (ICD-10-PCS; 2017-10-03)
DX: O34.211 Maternal care for low transverse scar from previous cesarean delivery (principal); O99.344 Other mental disorders complicating childbirth; F31.70 Bipolar disorder, currently in remission, most recent episode unspecified; O99.284 Endocrine, nutritional and metabolic diseases complicating childbirth; E03.9 Hypothyroidism, unspecified; F41.9 Anxiety disorder, unspecified; Z30.2 Encounter for sterilization; Z37.0 Single live birth; Z3A.38 38 weeks gestation of pregnancy

== ENCOUNTER 2018-04-09 08:35 | Emergency (ER) | payer OTHER ==
[2018-04-09 08:36] VITALS: BMI 31.2
[2018-04-09] MEDS ORDERED: Sodium Chloride 0.9% 1,000 ML IV STA (09:23)
--- NOTE | 2018-04-09 09:47 | ED PDOC ---
HPI: Abdomen Time Seen by Provider: 04/09/18 09:00 Chief Complaint (Nursing): GI Problem Chief Complaint (Provider): GI Problem History Per: Patient History/Exam Limitations: no limitations Onset/Duration Of Symptoms: Days (x3), Worse Since (last night) Outside of [place] travel?: No Current Symptoms Are (Timing): Still Present Additional Complaint(s): Patient is a 27 y/o female with a PMHx of anxiety and hypothyroidism who presents to the ED for evaluation of non-bloody vomiting and watery, non-bloody diarrhea ongoing for the past three days. In addition, patient admits to abdominal cramps. Patient states her symptoms were less at first but through the night and today became more frequent. Patient denies recent travel, fever, and antibiotic use. PCP: None Provided Past Medical History Vital Signs: Last Vital Signs Temp 98.1 F 04/09/18 08:39 Pulse 81 04/09/18 08:39 Resp 16 04/09/18 08:39 BP 121/69 04/09/18 08:39 Pulse Ox 98 04/09/18 08:39 - Medical History PMH: Anxiety, Hypothyroidism Denies: Diabetes, HTN, Chronic Kidney Disease Comment Only: Hyperthyroidism (has appointment for 04/12/14) - Surgical History Surgical History: Tonsillectomy, (x2) - Family History Family History: States: Unknown Family Hx - Home Medications Home Medications: Ambulatory Orders Medication Instructions Recorded Pnv with Ca,No.72/Iron/FA [Pnv 1 tab PO DAILY MDD 1 09/05/17 Plus Multivit Tab] Docusate Sodium [Stool Softener] 100 mg PO BID 15 Days #30 capsule 10/06/17 Ibuprofen [Motrin Tab] 600 mg PO Q6H PRN #30 tab 10/06/17 oxyCODONE/Acetaminophen [Percocet 1 ea PO Q6H PRN #20 tab 10/06/17 5/325 mg Tab] Dicyclomine [Dicyclomine HCl] 10 mg PO TID PRN #15 cap 04/09/18 Ondansetron ODT [Zofran ODT] 4 mg PO Q8 PRN #12 odt 04/09/18 - Allergies Allergies/Adverse Reactions: Allergies Allergy/AdvReac Type Severity Reaction Status Date / Time No Known Allergies Allergy Verified 09/20/17 22:04 Review of Systems ROS Statement: Except As Marked, All Systems Reviewed And Found Negative Constitutional: Negative for: Fever Gastrointestinal: Positive for: Vomiting (non-bloody), Abdominal Pain (cramps), Diarrhea (watery, non-bloody) Physical Exam - Reviewed Nursing Documentation Reviewed: Yes Vital Signs Reviewed: Yes - Physical Exam Appears: Positive for: Non-toxic, No Acute Distress Head Exam: Positive for: ATRAUMATIC, NORMAL INSPECTION, NORMOCEPHALIC Skin: Positive for: Normal Color, Warm, Dry Eye Exam: Positive for: EOMI, Normal appearance, PERRL ENT: Positive for: Normal ENT Inspection Neck: Positive for: Normal, Painless ROM, Supple Cardiovascular/Chest: Positive for: Regular Rate, Rhythm. Negative for: Murmur Respiratory: Positive for: Normal Breath Sounds. Negative for: Respiratory Distress Gastrointestinal/Abdominal: Positive for: Normal Exam, Soft. Negative for: Tenderness, Distended Back: Positive for: Normal Inspection. Negative for: L CVA Tenderness, R CVA Tenderness, Vertebral Tenderness Extremity: Positive for: Normal ROM. Negative for: Pedal Edema, Deformity Neurologic/Psych: Positive for: Alert, Oriented. Negative for: Motor/Sensory Deficits - Laboratory Results Result Diagrams: 04/09/18 09:36 04/09/18 09:36 - ECG O2 Sat by Pulse Oximetry: 98 (RA) Pulse Ox Interpretation: Normal - Progress Re-evaluation Time: 13:21 Condition: Re-examined, Improved Medical Decision Making Medical Decision Making: Time: 921 Impression: Vomiting, diarrhea, and abdominal pain. DDx includes but not limited to acute gastroenteritis and pancreatitis. Plan: CMP Lipase Urine Urine Dipstick CBC Bentyl 10 mg PO IV Fluids Zofran Inj 4 mg IVP IV Insertion ------ Scribe Attestation: Documented by Ambrosio Damian, acting as a scribe for Rasheeda Aguilar MD. Provider Scribe Attestation: All medical record entries made by the Scribe were at my direction and personally dictated by me. I have reviewed the chart and agree that the record accurately reflects my personal performance of the history, physical exam, medical decision making, and the department course for this patient. I have also personally directed, reviewed, and agree with the discharge instructions and disposition. Disposition - Clinical Impression Clinical Impression: Vomiting and diarrhea, Abdominal pain - Patient ED Disposition Is Patient to be Admitted: No Counseled Patient/Family Regarding: Studies Performed, Diagnosis, Need For Followup - Disposition Referrals: [facility] [Outside] Disposition: Routine/Home Disposition Time: 13:23 Condition: GOOD Additional Instructions: VIRGINIE LO, thank you for letting us take care of you today. Your provider was Rasheeda Aguilar MD and you were treated for VOMITING. The emergency medical care you received today was directed at your acute symptoms. If you were prescribed any medication, please fill it and take as directed. It may take several days for your symptoms to resolve. Return to the Emergency Department if your symptoms worsen, do not improve, or if you have any other problems. Please contact your doctor or call one of the physicians/clinics you have been referred to that are listed on the Patient Visit Information form that is included in your discharge packet. Bring any paperwork you were given at [facility] with you along with any medications you are taking to your follow up visit. Our treatment cannot replace ongoing medical care by a primary care provider outside of the emergency department. Thank you for allowing the [facility] team to be part of your care today. If you had an X-Ray or CT scan: A Radiologist will review the ED reading if any change in treatment is needed we will contact you. If you had a blood, urine, or wound culture: It will take several days for the results, if any change in treatment is needed we will contact you. If you had an STI test: It will take 48 hours for the results. Please call after 1 week if you have not heard back. Prescriptions: Dicyclomine [Dicyclomine HCl] 10 mg PO TID PRN #15 cap PRN Reason: Diarrhea Ondansetron ODT [Zofran ODT] 4 mg PO Q8 PRN #12 odt PRN Reason: Nausea/Vomiting Instructions: Stomach Ache and Stomach Upset Forms: [facility] (Danish)
[2018-04-09 09:55] LABS: ALB/GLOB RATIO 1.2 (1.0-2.1); ALBUMIN 4.2 g/dL (3.5-5.0); ALT/SGPT 30 U/L (9-52); AST/SGOT 23 U/L (14-36); BLOOD UREA NITROGEN 15 mg/dl (7-17); CALCIUM 9.2 mg/dL (8.4-10.2); GFR NON-AFRICAN AMERICAN > 60; LIPASE 64 U/L (23-300)
[2018-04-09 10:04] LABS: BASO % 0.3 % (0.0-2.0); EOS % 0.8 % (0.0-4.0); HEMOGLOBIN 13.1 g/dL (12.0-16.0); LYMPH # 1.1 K/uL (1.0-4.3); LYMPH % 18.9 % (20.0-40.0); MEAN CELL VOLUME 96.4 fl (81.0-99.0); MEAN CORPUSCULAR HEMOGLOBIN 32.1 pg (27.0-31.0); MEAN CORPUSCULAR HGB CONC 33.3 g/dL (33.0-37.0); MEAN PLATELET VOLUME 7.5 fl (7.2-11.7); MONO # 0.5 K/uL (0.0-0.8); MONO % 8.5 % (0.0-10.0); NEUT # 4.1 K/uL (1.8-7.0); NEUT % 71.5 % (50.0-75.0); RBC 4.06 Mil/uL (3.80-5.20); RED CELL DISTRIBUTION WIDTH 13.3 % (11.5-14.5); WHITE BLOOD COUNT 5.7 K/uL (4.8-10.8)
[2018-04-09] MEDS ORDERED: Alum-Mag Hydrox-Simethicone Susp (30 mL) PO ONE (11:34)
[2018-04-09] MEDS ORDERED: Alum-Mag Hydrox-Simethicone Susp (30 mL) ONE (12:44)
[2018-04-09 13:42] VITALS: BP 118/70; PULSE 88; RESP 18; TEMP 97.9; O2SAT 100
== END 2018-04-09 13:40 | disposition home or self-care (01) ==
LOC: H.ER 08:35
DX: R11.10 Vomiting, unspecified (principal); R19.7 Diarrhea, unspecified; R10.9 Unspecified abdominal pain
CPT/HCPCS: 80053; 81025; 83690; 85025; 96374; 96375; 99284; J2405; J7030